=== PATIENT | female | born 1990 | race Caucasian/White ===

== ENCOUNTER 2021-08-30 09:01 | Emergency (ER) | payer MEDICAID ==
[~2021-08-30] VITALS: Ht 167.6 cm; Wt 61.0 kg
[2021-08-30 09:06] VITALS: BP 132/77
[2021-08-30] MEDS ORDERED: ACETAMINOPHEN 325MG TABLET PO ONE (09:30)
[2021-08-30] MEDS ORDERED: TOPUD PO (09:36)
== END 2021-08-30 10:29 | disposition home or self-care (01) ==
LOC: ER 09:01
DX: R51.9 Headache, unspecified (principal); M54.2 Cervicalgia; F12.10 Cannabis abuse, uncomplicated; Z88.0 Allergy status to penicillin
CPT/HCPCS: 99283